=== PATIENT | female | born 1970 | race Caucasian/White ===

== ENCOUNTER 2017-01-01 08:53 | Outpatient (CLI) | payer BC ==
[2017-01-01 09:51] LABS: eGFR (African) > 60; eGFR (Non-African) > 60
== END 2017-01-01 11:26 ==
LOC: LAB 08:53
PROVIDERS: ATTEND Family Medicine
DX: Z00.00 Encounter for general adult medical examination without abnormal findings (principal)
CPT/HCPCS: 36415; 80053; 80061; 82306; 82607; 82746; 84443

== ENCOUNTER 2017-08-28 08:34 | Outpatient (CLI) | payer BC | END 2017-08-28 08:39 | LOC: LAB 08:34 | PROVIDERS: ATTEND Family Medicine | DX: E78.5 Hyperlipidemia, unspecified (principal) | CPT/HCPCS: 36415; 80061 ==